=== PATIENT | female | born 1975 | race Caucasian/White ===

== ENCOUNTER 2020-01-08 07:51 | Day surgery (SDC) | payer BC ==
[2020-01-02 14:43] LABS: BASOPHILS % (AUTO) 0.3 % (0-1); EOSINOPHILS # (AUTO) 0.1 X10'3 (0-0.9); EOSINOPHILS % (AUTO) 0.9 % (0-6); LYMPHOCYTES # (AUTO) 1.7 X10'3 (1.1-4.8); LYMPHOCYTES % (AUTO) 23.5 % (21-51); MEAN CORPUSCULAR HEMOGLOBIN 30.8 PG (27.0-31.0); MEAN CORPUSCULAR HGB CONC 33.1 g/dL (33.0-36.5); MEAN CORPUSCULAR VOLUME 92.9 FL (78-98); MEAN PLATELET VOLUME 8.2 FL (7.4-10.4); MONOCYTES # (AUTO) 0.4 X10'3 (0-0.9); MONOCYTES % (AUTO) 5.4 % (2-12); NEUTROPHILS # (AUTO) 5.1 X10'3 (1.8-7.7); NEUTROPHILS % (AUTO) 69.9 % (42-75); PRE OP HEMATOCRIT 41.5 % (35.0-45.0); PRE OP HEMOGLOBIN 13.7 g/dL (12.0-16.0); PRE OP PLATELET COUNT 249 X10'3 (140-440); RED BLOOD COUNT 4.47 X10'6 (4.20-5.60); RED CELL DISTRIBUTION WIDTH 13.8 % (11.5-14.5)
[2020-01-02 15:01] LABS: ALBUMIN 4.1 G/DL (3.4-5.0); ALBUMIN/GLOBULIN RATIO 1.2 (1.1-1.5); ALKALINE PHOSPHATASE 93 IU/L (46-116); BLOOD UREA NITROGEN 11 MG/DL (7-18); BUN/CREATININE RATIO 10.5 (6.6-38.0); CALCIUM 9.5 MG/DL (8.5-10.1); CHLORIDE 106 MMOL/L (99-107); CREATININE 1.05 MG/DL (0.40-0.90); PRE OP ALT 34 U/L (30-65); PRE OP ANION GAP 4 (8-16); PRE OP AST 25 U/L (10-37); PRE OP BILIRUB, TOTAL 0.4 MG/DL (0.0-1.0); PRE OP GLUCOSE 98 MG/DL (70-104); PRE OP POTASSIUM 3.8 MMOL/L (3.4-5.1); PRE OP SODIUM 143 MMOL/L (135-145); TOTAL CARBON DIOXIDE 32.8 MMOL/L (24-32); TOTAL PROTEIN 7.5 G/DL (6.4-8.2); eGFR 57 ML/MIN
[2020-01-02 15:05] LABS: HCG SERUM QL NEGATIVE
[2020-01-08] VITALS (14 sets, daily range): BP systolic 100–127; BP diastolic 63–73
[~2020-01-08] VITALS: Ht 175.3 cm; Wt 71.7 kg
[~2020-01-08 07:51] MED LIST: BUPIVAcaine/PF 2.5 mg/ml (0.25%) 30ml vial ONE; CBD OIL PO; CHOL10006 PO; DIGESTIVE ENZYMES PO; INDOCYANINE GREEN 25 MG/10 ML VIAL IV ONE; LIDOcaine 1% 30ml preserv. free vial ONE; LYSI500T40 PO; Magnesium Oxide PO; [UNRECOGNIZED DRUG - OTHER] PO; [UNRECOGNIZED DRUG - OTHER] PO; [UNRECOGNIZED DRUG - REMARK] PO; famotidine 20mg tablet PO ONE; ringers solution, lacted 1,000 ML IV SCH; scopolamine 1.5mg patch.TD72 TD ONE
[2020-01-08] MEDS ORDERED: cefazolin/dext.iso 2gm/50ml 50 ML IV ONE (08:45)
[2020-01-08] MEDS ORDERED: aprepitant 40mg capsule PO ONE (09:21)
[2020-01-08] MEDS ORDERED: sevoflurane 250ml liquid IH ONE (09:25)
[2020-01-08] MEDS ORDERED: fentaNYL/PF 50MCG/1 ML 2ML syringe ONE (09:27)
[2020-01-08] MEDS ORDERED: midazolam 2 mg/2 ml injection ONE (09:28)
[2020-01-08] MEDS ORDERED: ringers solution, lacted 1,000 ML IV SCH (09:31)
[2020-01-08] MEDS ORDERED: meperidine/PF 25mg/ml syringe IV PRN (09:35)
[2020-01-08] MEDS ORDERED: ondansetron/PF 4mg/2ml inj IV PRN (09:35)
[2020-01-08] MEDS ORDERED: proCHLORperazine 10 MG/2 ml inj IV PRN (09:35)
[2020-01-08] MEDS ORDERED: fentaNYL/PF 50MCG/1 ML 2ML syringe IV PRN (09:35)
[2020-01-08] MEDS ORDERED: HYDROmorphone inj. 0.5 MG/0.5 ML DISP.SYRIN IV PRN ×2 (09:35)
[2020-01-08] MEDS ORDERED: LIDOcaine 2% (20mg/ml) 5ml vial ONE (09:45)
[2020-01-08] MEDS ORDERED: rocuronium 10mg/ml inj IV ONE (09:45)
[2020-01-08] MEDS ORDERED: propofol inj 20 ML IV ONE ×2 (09:45)
[2020-01-08] MEDS ORDERED: ePHEDrine 50MG/ML INJ. ONE (09:53)
[2020-01-08] MEDS ORDERED: dexamethasone sod phosphate 4mg/ml inj. ONE (09:53)
[2020-01-08] MEDS ORDERED: ondansetron/PF 4mg/2ml inj ONE (09:53)
[2020-01-08] MEDS ORDERED: 0.9 % SODIUM CHLORIDE 10 ML VIAL ONE (09:53)
[2020-01-08] MEDS ORDERED: glycopyrrolate 0.2mg/ml inj ONE (10:30)
[2020-01-08] MEDS ORDERED: neostigmine methylsulfate 1 MG/ML 10ml vial ONE (10:30)
--- NOTE | 2020-01-08 10:42 | NUR ---
RECEIVED FROM OR VIA [facility] ACCOMPANIED BY ANESTHESIOLOGIST DR RIDDLE, REPORT GIVEN. PT DROWSY BUT AWAKENS WITH COMPLAINTS OF SOB. SPO2 100% ANESTHESIA AND SURGEON AWARE. STATES PAIN LEVEL AT A 7. 20 GAUGE PIV L FA PATENT AND RUNNING LR AT 100 ML/HR. DERMABOND DRESSINGS X 4 CDI TO ABD. PERIPHERAL PULSES PRESENT, GOOD CAP REFILL, ABD SOFT, VSS. PT STATES IS HAVING ANXIETY.
[2020-01-08] MEDS ORDERED: HYDROcodone/acetaminophen 5mg/325mg tablet PO PRN (10:50)
[2020-01-08] MEDS: fentaNYL/PF 50MCG/1 ML 2ML syringe IV PRN ×2 (11:01→11:23)
[2020-01-08] MEDS ORDERED: traMADol 50MG tablet PO PRN (11:05)
--- NOTE | 2020-01-08 12:42 | NUR ---
ANXIETY HAS PASSED, TOLERATING FLUIDS, VSS, STATES PAIN LEVEL AT A 2. 20 GAUGE PIV L FA DC/D CATH TIP INTACT. DERMABOND DRESSINGS X 4 CDI TO ABD. PERIPHERAL PULSES PRESENT, GOOD CAP REFILL, ABD SOFT. DISCHARGE INSTRUCTIONS GIVEN AND PT VERBALIZES UNDERSTANDING. TRANSPORTED VIA WHEELCHAIR TO IN PRIVATE VEHICLE TO HOME.
== END 2020-01-08 12:42 | disposition home or self-care (01) ==
LOC: PAS 07:51
PROVIDERS: ATTEND Surgery
DX: K82.8 Other specified diseases of gallbladder (principal); K81.1 Chronic cholecystitis; D64.9 Anemia, unspecified; Z11.59 Encounter for screening for other viral diseases; Z98.890 Other specified postprocedural states; Z88.8 Allergy status to other drugs, medicaments and biological substances; Z79.899 Other long term (current) drug therapy; Z80.1 Family history of malignant neoplasm of trachea, bronchus and lung; Z80.3 Family history of malignant neoplasm of breast; Z82.49 Family history of ischemic heart disease and other diseases of the circulatory system
CPT/HCPCS: 36415; 47563; 80053; 82948; 84703; 85025; 93005; J1100; J2001; J2250; J2405; J2704; J2710; J3010; J3490; J7120; J8501; S2900; U0003; A4215; A4618; A7000